=== PATIENT | female | born 1970 | race Caucasian/White ===

== ENCOUNTER 2021-05-01 06:22 | Emergency (ER) | payer MEDICAID, OTHER ==
[~2021-05-01] VITALS: Ht 152.4 cm; Wt 77.3 kg
--- NOTE | 2021-05-01 07:22 | PHYS DOC ---
Past Medical History Past Medical History: Hypertension Additional Past Medical Histor: DEXTROCARDIA, UROSTOMY Past Surgical History: Other Additional Past Surgical Histo: R TIB/FIB FX, CONJOINED TWIN SEPARATION, R KIDNEY REMOVED,UROSTOMY Smoking Status: Current Every Day Smoker Alcohol Use: None General Adult EDM: Chief Complaint: LOWER EXT PAIN HPI: HPI: Patient is a 50 year old female who present to ER for evaluation of right lower extremity pain and swelling. Patient had tib-fib operation on her right leg 2 months ago [facility]. Patient said her wound was infected, they have to 2 weeks ago to evacuate some infection and the wound VAC was placed. Patient had a PICC line inserted and she had been receiving IV antibiotic. Patient is on Xarelto. Nursing reports that there was some blood oozing out of the wound. For the last 2 days her legs have been swollen and tender so her half-way doctor decided sent her here to make sure she does not blood clot. Patient denies any chest pain, no abdominal pain, no nausea vomiting. Patient denies any trouble breathing. Review of Systems: Review of Systems: Constitutional: Denies fever or chills. [] Eyes: Denies change in visual acuity. [] HENT: Denies nasal congestion or sore throat. [] Respiratory: Denies cough or shortness of breath. [] Cardiovascular: Denies chest pain or edema. [] GI: Denies abdominal pain, nausea, vomiting, bloody stools or diarrhea. [] : Denies dysuria. [] Musculoskeletal: Positive for right leg pain and swelling. Integument: Denies rash. [] Neurologic: Denies headache, focal weakness or sensory changes. [] Endocrine: Denies polyuria or polydipsia. [] Lymphatic: Denies swollen glands. [] Psychiatric: Denies depression or anxiety. [] Heart Score: C/O Chest Pain: N/A Risk Factors: Risk Factors: DM, Current or recent (<one month) smoker, HTN, HLP, family history of CAD, obesity. Risk Scores: Score 0 - 3: 2.5% MACE over next 6 weeks - Discharge Home Score 4 - 6: 20.3% MACE over next 6 weeks - Admit for Clinical Observation Score 7 - 10: 72.7% MACE over next 6 weeks - Early Invasive Strategies Allergies: Allergies: Allergies Coded Allergies Type Severity Reaction Last Updated Verified hydromorphone Allergy Unknown 05/01/21 Yes morphine Allergy Unknown 05/01/21 Yes Physical Exam: PE: Constitutional: Well developed, well nourished, no acute distress, non-toxic appearance. [] HENT: Normocephalic, atraumatic, bilateral external ears normal, oropharynx moist, no oral exudates, nose normal. [] Eyes: PERRLA, EOMI, conjunctiva normal, no discharge. [] Neck: Normal range of motion, no tenderness, supple, no stridor. [] Cardiovascular:Heart rate regular rhythm, no murmur [] Lungs & Thorax: Bilateral breath sounds clear to auscultation [] Abdomen: Bowel sounds normal, soft, no tenderness, no masses, no pulsatile masses. [] Skin: Warm, dry, no erythema, no rash. [] Back: No tenderness, no CVA tenderness. [] Extremities: right leg with healing wound, sutures in placed, no active bleeding, dried blood along the wound edge, WARM TO TOUCH, MILD SWELLING COMPARING TO LEFT LEG. Neurologic: Alert and oriented X 3, normal motor function, normal sensory function, no focal deficits noted. [] Psychologic: Affect normal, judgement normal, mood normal. [] Current Patient Data: Vital Signs: Vital Signs Date Time Temp Pulse Resp B/P (MAP) Pulse Ox O2 Delivery O2 Flow Rate FiO2 05/01/21 06:39 98.2 92 16 139/83 (101) 97 Room Air 98.2 EKG: EKG: [] Radiology/Procedures: Radiology/Procedures: [facility] [address] [place], [place] [id number] IMAGING REPORT Signed PATIENT: JUANY KING ACCOUNT: [id number] : 1970 LOCATION: ER AGE: 50 SEX: F EXAM STATUS: REG ER ORD. PHYSICIAN: JODEE SMALLS DO REASON: RIGHT LEG SWELLING AND PAIN, TIB/FIB SURGERY 2 MONTHS AGO PROCEDURE: VENOUS LOWER EXTREMITY RIGHT EXAM: Right lower extremity venous Doppler sonogram. HISTORY: Pain and swelling. TECHNIQUE: Hickman scale and color Doppler sonographic evaluation of the right lower extremity veins with spectral waveform analysis was performed. FINDINGS: There is normal color flow, normal compressibility and there are normal spectral waveforms in the common femoral, superficial femoral, popliteal, posterior tibial and greater saphenous veins. There is limited evaluation of the calf veins due to soft tissue edema. IMPRESSION: No Doppler evidence of lower extremity deep venous thrombosis, with limited evaluation of the calf veins due to soft tissue edema. Electronically signed by: Cyndi Akins MD (05/01/2021 8:51 AM) [id number] DICTATED and SIGNED BY: CYNDI AKINS MD DATE: 05/01/21 [id number] 0 Course & Med Decision Making: Course & Med Decision Making Pertinent Labs and Imaging studies reviewed. (See chart for details) Patient is a 50-year-old female who was brought here for evaluation of right leg pain, patient had right tib-fib surgery 2 months ago, had infection, had wound evacuation 2 weeks ago. There is no active bleeding at the wound site, there is no DVT on the Doppler. Dragon Disclaimer: Dragon Disclaimer: This electronic medical record was generated, in whole or in part, using a voice recognition dictation system. Departure Departure Impression: Primary Impression: Acute leg pain Additional Impression: Post-op pain Disposition: 01 HOME / SELF CARE / HOMELESS Condition: STABLE Referrals: NON,STAFF (PCP) FOLLOW UP WITH YOUR ORTHOPEDIC SURGEON SCHEDULED NEXT WEEK Patient Instructions: Leg Cramps, Pain Relief Preoperatively and Postoperativ danis Additional Instructions: Thank you for visiting our Emergency Department. We appreciate you trusting us with your care. If any additional problems come up don't hesitate to return to visit us. Please follow up with your primary care provider so they can plan additional care if needed and know about the problem that you had. If symptoms worsen come back to the Emergency Department. Any concerning symptoms that start such as chest pain, shortness of air, weakness or numbness on one side of the body, running high fevers or any other concerning symptoms return to the ER. JODEE SMALLS DO May 01, 2021 07:22
--- NOTE | 2021-05-01 08:53 | RAD ---
EXAM: Right lower extremity venous Doppler sonogram. HISTORY: Pain and swelling. TECHNIQUE: Hickman scale and color Doppler sonographic evaluation of the right lower extremity veins wit h spectral waveform analysis was performed. FINDINGS: There is normal color flow, normal compressibility and there are normal spectral waveforms in the common femoral, superficial femoral, popliteal, posterior tibial and greater saphenous veins. There is limited evaluation of the calf veins due to soft tissue edema. IMPRESSION: No Doppler evidence of lower extremity deep venous thrombosis, with limited evaluation of the calf veins due to soft tissue edema. Electronically signed by: Cyndi Celeste MD (05/01/2021 8:51 AM) [id number]
[2021-05-01 10:25] VITALS: BP 148/72
== END 2021-05-01 11:23 | disposition home or self-care (01) ==
LOC: ER 06:22
DX: M79.604 Pain in right leg (principal); G89.18 Other acute postprocedural pain; I10 Essential (primary) hypertension; F17.200 Nicotine dependence, unspecified, uncomplicated; Z88.5 Allergy status to narcotic agent
CPT/HCPCS: 93971; 99285-25